=== PATIENT | female | born 1990 | race Caucasian/White ===

== ENCOUNTER 2018-09-26 19:56 | Emergency (ER) | payer MEDICAID ==
[~2018-09-26] VITALS: Ht 154.9 cm; Wt 73.0 kg
[2018-09-26 20:18] VITALS: BP 120/89
== END 2018-09-26 23:30 | disposition left against medical advice (07) ==
LOC: ER 19:56
DX: R07.89 Other chest pain (principal); Z53.21 Procedure and treatment not carried out due to patient leaving prior to being seen by health care provider
CPT/HCPCS: 93005